=== PATIENT | female | born 1980 ===

== ENCOUNTER 2020-09-09 14:45 | Outpatient (CLI) | payer OTHER | END 2020-09-09 14:56 | disposition home or self-care (01) | LOC: MAMO-SONO 14:45 | DX: Z12.31 Encounter for screening mammogram for malignant neoplasm of breast (principal); N64.4 Mastodynia; N60.11 Diffuse cystic mastopathy of right breast; N60.12 Diffuse cystic mastopathy of left breast ==

== ENCOUNTER 2020-10-01 13:35 | Outpatient (CLI) | payer OTHER | END 2020-10-01 13:45 | disposition home or self-care (01) | LOC: MRI 13:35 | DX: M51.24 Other intervertebral disc displacement, thoracic region (principal); M54.14 Radiculopathy, thoracic region | CPT/HCPCS: 72157 ==